=== PATIENT | male | born 1990 | race Caucasian/White ===

== ENCOUNTER 2023-08-08 09:49 | Outpatient (CLI) | payer BC, SELFPAY ==
--- NOTE | ~2023-08-08 | US_ITS ---
Abdominal Sonogram: Real-time sonographic imaging of the abdomen was performed. Clinical History: Abdominal pain Findings: The liver appears normal with no evidence of mass lesion or bile duct dilatation. Main por lacy vein demonstrates normal direction of flow. The spleen is normal in size without evidence of foca l lesion. The gallbladder is well distended, and appears normal with no evidence of gallstone or wal l thickening. The common bile duct measures 3 mm. The visualized pancreas, aorta, and IVC are unrema rkable. The right kidney measures 10.6 cm in length and the left kidney measures 12.4 cm. There is no hydronephrosis or renal calculus. Visualized urinary bladder unremarkable. Impression: Unremarkable abdominal ultrasound. Reviewed, dictated and finalized at location . Impression: Unremarkable abdominal ultrasound.
--- NOTE | ~2023-08-08 | US_ITS ---
EXAMINATION: US scrotum doppler DATE: 08/08/2023 10:29 INDICATION: Pain in testicle. TECHNIQUE: Grayscale and Doppler ultrasound images of the testes were obtained. COMPARISON: Ultrasound 10/16/2017 FINDINGS: The right testis measures 4.5 x 2.6 x 2.5 cm. The left testis measures 4.3 x 3.1 x 2.4 cm. There is normal vascular flow to both testes. The right epididymis is normal with normal vascular patrick w. The left epididymis is normal with normal vascular flow. There is no varicocele or hydrocele. IMPRESSION: 1. Normal testes. Reviewed, dictated and finalized at location A. IMPRESSION: 1. Normal testes.
== END 2023-08-08 09:50 ==
PROVIDERS: PCP Nurse Practitioner Family; Visit Provider Nurse Practitioner Family
DX: N50.819 Testicular pain, unspecified (principal); R10.9 Unspecified abdominal pain
CPT/HCPCS: 76700; 76870; 93976